=== PATIENT | female | born 1960 | race African-American/Black ===

== ENCOUNTER 2017-08-20 16:11 | Outpatient (CLI) | payer BC | END 2017-08-20 16:12 | disposition home or self-care (01) | LOC: BICULT 16:11 | PROVIDERS: ATTEND Family Medicine | DX: Z12.31 Encounter for screening mammogram for malignant neoplasm of breast (principal); R92.1 Mammographic calcification found on diagnostic imaging of breast; Z80.3 Family history of malignant neoplasm of breast | CPT/HCPCS: 77063; 77067 ==

== ENCOUNTER 2018-08-09 06:51 | Outpatient (CLI) | payer BC ==
[2018-08-09 17:54] LABS: Hemoglobin 12.9 g/dL (12.0-16.0); Mean Corpuscular HGB CONC 33.2 g/dL (32.0-36.0); Mean Corpuscular Hemoglobin 30.5 pg (27.0-31.0); Mean Corpuscular Volume 91.7 fL (78.0-98.0); Mean Platelet Volume 8.4 fL (7.4-10.4); Platelet Count 215 thou/uL (130-400); RBC Distribution Width 13.4 % (11.5-14.5); Red Blood Cell (RBC) Count 4.22 mill/uL (4.20-5.40); White Blood Cell (WBC) Count 6.2 thou/uL (4.8-10.8)
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
--- NOTE | 2018-08-10 16:10 | EKG ---
Test Reason : Blood Pressure : / mmHG Vent. Rate : 077 BPM Atrial Rate : 077 BPM P-R Int : 166 ms QRS Dur : 076 ms QT Int : 382 ms P-R-T Axes : 064 068 059 degrees QTc Int : 432 ms Normal sinus rhythm with sinus arrhythmia Cannot rule out Anterior infarct , age undetermined Abnormal ECG Confirmed by DR. Deyvi DIMAS ([id number]) on 08/10/2018 4:10:06 PM Referred By: SHILPI Confirmed By:DR. Deyvi DIMAS
== END 2018-08-09 06:52 | disposition home or self-care (01) ==
LOC: LABBT 06:51
PROVIDERS: ATTEND Obstetrics & Gynecology
DX: Z01.818 Encounter for other preprocedural examination (principal); N84.0 Polyp of corpus uteri
CPT/HCPCS: 85027; 86850; 86900; 86901; 93005; 93010

== ENCOUNTER 2018-08-10 09:57 | Day surgery (SDC) | payer BC ==
[2018-08-09 17:04] VITALS: BMI 52.1
[2018-08-10] MEDS ORDERED: PROPOFOL 200 MG/20 ML VIAL ONE (10:48)
[2018-08-10] MEDS ORDERED: Succinylcholine Chloride 20 MG/ML 10 ml SYRINGE FS ONE (10:48)
[2018-08-10] MEDS ORDERED: Ondansetron PF 4 MG/2 ML Vial ONE (10:48)
[2018-08-10] MEDS ORDERED: Lidocaine 1% PF 5 ML VIAL ONE (10:48)
[2018-08-10] MEDS ORDERED: CEFAZOLIN 2 GM/50 ML BAG ONE (12:02)
[2018-08-10] MEDS ORDERED: Fentanyl 100 MCG/2 ML VIAL ONE (12:18)
[2018-08-10] MEDS ORDERED: HYDROmorphone 2 MG/ML VIAL ONE (13:58)
[2018-08-10] MEDS ORDERED: HYDROcodone/Acetaminophen 5/325 mg Tablet ONE (15:40)
--- NOTE | 2018-08-10 20:27 | OP ---
DATE OF PROCEDURE: 08/10/2018 PREOPERATIVE DIAGNOSIS: A 58-year-old female with postmenopausal bleeding and endometrial polyp seen on pelvic ultrasound. POSTOPERATIVE DIAGNOSIS: A 58-year-old female with postmenopausal bleeding and endometrial polyp seen on pelvic ultrasound. PROCEDURES PERFORMED: Hysteroscopy with dilatation and curettage and excision of endometrial polyp with TruClear INCISOR 5 mm device. ANESTHESIA: General endotracheal. FLUID DEFICIT: 300 mL of normal saline. PATHOLOGY: Endometrial polyp and curettings. ANTIBIOTICS: 2 g Ancef on-call the OR. FINDINGS: Normal-appearing ecto and endocervix. Uterus noted to have a polypoid lesion extending from the fundus of the stalk into the lower uterine segment of the uterus, status post excision, otherwise atrophic-appearing endometrium. DISPOSITION: Recovery room, stable. DESCRIPTION OF PROCEDURE: The patient previously received informed consent in regard to surgery, taken back to the operating room, where she received a general endotracheal anesthetic agent without complications. She was placed in dorsal lithotomy position with use of Phi stirrups. In and out catheterization of the bladder was performed at this time. A sidearm speculum was placed in the vagina, and the anterior lip of the cervix was grasped with single-tooth tenaculum, the uterus was sounded to 8 cm. The cervix was then sequentially dilated to a size 18 Hamilton dilator. The 5-mm diagnostic hysteroscope with TruClear system was then placed through the cervical os, and endometrial cavity and urine cavity were distended with 80 mm of pressure with saline flow. The cavity of the uterus was inspected with the previously mentioned findings. The 5-mm INCISOR device was then placed through the operative channel under direct visualization. The endometrial polyp was removed in toto. The specimen was sent for final tissue pathology. The remainder of the cavity also was curetted with a sharp curette, and this was sent for endometrial curettage. Once the procedure was completed, the fluid deficit was noted to be 300 mL on normal saline. The hysteroscope was removed. Tenaculum was removed. If the area of bleeding puncture site from the tenaculum, this was made hemostatic with Bovie cautery. The speculum was then removed. The patient was awakened from anesthesia and transferred to recovery room in stable condition. Job ID: [id number]
== END 2018-08-10 16:10 | disposition home or self-care (01) ==
LOC: SDC 09:57
PROVIDERS: ATTEND Obstetrics & Gynecology
PROC: 0UB98ZX Excision of Uterus, Via Natural or Artificial Opening Endoscopic, Diagnostic (ICD-10-PCS; principal; 2018-08-10)
PROC: 0UDB8ZX Extraction of Endometrium, Via Natural or Artificial Opening Endoscopic, Diagnostic (ICD-10-PCS; principal; 2018-08-10)
DX: N95.0 Postmenopausal bleeding (principal); N84.0 Polyp of corpus uteri; I10 Essential (primary) hypertension; E11.9 Type 2 diabetes mellitus without complications; M19.90 Unspecified osteoarthritis, unspecified site; E66.9 Obesity, unspecified; Z79.1 Long term (current) use of non-steroidal anti-inflammatories (NSAID); Z79.84 Long term (current) use of oral hypoglycemic drugs; Z79.52 Long term (current) use of systemic steroids; Z79.51 Long term (current) use of inhaled steroids; Z79.899 Other long term (current) drug therapy; Z98.890 Other specified postprocedural states
CPT/HCPCS: 88305; 96374; J1170; J2001; J2405; J2704; J3010

== ENCOUNTER 2019-01-31 16:48 | Emergency (ER) | payer BC ==
[2019-01-31] MEDS ORDERED: Ibuprofen 800 MG TAB ONE (17:59)
[2019-01-31] MEDS ORDERED: Diazepam 5 MG TAB ONE (18:27)
[2019-01-31 18:32] LABS: Bilirubin Negative (Negative); Blood, Urine Negative (Negative); Clarity CLOUDY (Clear); Glucose, Urine (Dipstick) Negative (Negative); Leukocyte Small (Negative); Nitrite Negative (Negative); Protein, Urine (Dipstick) Negative (Neg-Trace)
[2019-01-31 18:35] LABS: Bacteria/HPF 1+ HPF (None Seen); Hyaline Casts/LPF 0-3 HYALINE CAST LPF (0-3 Hyaline); Pathc Cast-AUWi Flag 0.54 (0-2.49); RBC/HPF 0-3 HPF (0-3)
== END 2019-01-31 19:11 | disposition home or self-care (01) ==
LOC: ERS 16:48
DX: G89.29 Other chronic pain (principal); M54.5 Low back pain; I10 Essential (primary) hypertension; E11.9 Type 2 diabetes mellitus without complications; Z79.84 Long term (current) use of oral hypoglycemic drugs; Z79.899 Other long term (current) drug therapy
CPT/HCPCS: 81003; 81015; 99283

== ENCOUNTER 2019-11-15 21:00 | Emergency (ER) | payer BC ==
--- NOTE | 2019-11-15 21:40 | RAD ---
Right knee 4 views HISTORY: Right knee injury. FINDINGS: Moderate joint space narrowing at the medial compartment with very mild lateral subluxation of the knee. Moderate tricompartmental osteophytosis. No acute fracture, dislocation, or fluid distention of the suprapatellar bursa evident. IMPRESSION : Osteoarthritic changes right knee most pronounced at the medial compartment. No acute osseous abnorma lities are demonstrated.
== END 2019-11-15 22:55 | disposition home or self-care (01) ==
LOC: ERS 21:00
DX: M25.561 Pain in right knee (principal); E11.9 Type 2 diabetes mellitus without complications; I10 Essential (primary) hypertension; Z79.899 Other long term (current) drug therapy; Z79.84 Long term (current) use of oral hypoglycemic drugs

== ENCOUNTER 2020-10-24 15:43 | Outpatient (CLI) | payer BC | END 2020-10-24 15:44 | disposition home or self-care (01) | LOC: BICMAMMO 15:43 | PROVIDERS: ATTEND Family Medicine | DX: Z12.31 Encounter for screening mammogram for malignant neoplasm of breast (principal); Z80.3 Family history of malignant neoplasm of breast | CPT/HCPCS: 77063; 77067 ==

== ENCOUNTER 2021-01-03 12:36 | Outpatient (CLI) | payer BC ==
[2021-01-03 23:51] LABS: SARS-CoV-2 NAA Rapid Test Not Detected (NotDetected)
== END 2021-01-03 12:37 | disposition home or self-care (01) ==
LOC: LABBT 12:36
PROVIDERS: ATTEND Internal Medicine Gastroenterology
DX: Z01.812 Encounter for preprocedural laboratory examination (principal); Z12.11 Encounter for screening for malignant neoplasm of colon; Z20.822 Contact with and (suspected) exposure to COVID-19
CPT/HCPCS: U0002; U0005

== ENCOUNTER 2021-01-04 06:13 | Day surgery (SDC) | payer BC ==
[2021-01-03 11:18] VITALS: BMI 51.7
[2021-01-04] MEDS ORDERED: PROPOFOL 200 MG/20 ML VIAL ONE (08:20)
[2021-01-04] MEDS ORDERED: Lidocaine 1% PF 5 ML VIAL ONE (08:20)
== END 2021-01-04 09:42 | disposition home or self-care (01) ==
LOC: SDC 06:13
PROVIDERS: ATTEND Internal Medicine Gastroenterology
PROC: 0DBN8ZX Excision of Sigmoid Colon, Via Natural or Artificial Opening Endoscopic, Diagnostic (ICD-10-PCS; principal; 2021-01-04)
DX: Z12.11 Encounter for screening for malignant neoplasm of colon (principal); D12.5 Benign neoplasm of sigmoid colon; Z79.84 Long term (current) use of oral hypoglycemic drugs; Z79.899 Other long term (current) drug therapy
CPT/HCPCS: 88305; J2704

== ENCOUNTER 2022-02-18 13:57 | Outpatient (CLI) | payer BC | END 2022-02-18 13:58 | disposition home or self-care (01) | LOC: BICRAD 13:57 | PROVIDERS: ATTEND Family Medicine | DX: M70.62 Trochanteric bursitis, left hip (principal); R10.32 Left lower quadrant pain; M16.12 Unilateral primary osteoarthritis, left hip | CPT/HCPCS: 72190 ==